=== PATIENT | male | born 1970 | race Caucasian/White ===

== ENCOUNTER 2017-12-13 23:48 | Emergency (ER) | payer OTHER ==
[~2017-12-13] VITALS: Ht 175.3 cm; Wt 78.9 kg
[2017-12-14] MEDS ORDERED: PERCOCET 5/31 TABLET PO (02:54)
[2017-12-14 04:00] VITALS: BP 110/66
== END 2017-12-14 04:00 | disposition home or self-care (01) ==
LOC: EME 23:48
DX: R10.32 Left lower quadrant pain (principal); R22.2 Localized swelling, mass and lump, trunk; X50.9XXA Other and unspecified overexertion or strenuous movements or postures, initial encounter; Y93.66 Activity, soccer
CPT/HCPCS: 76882; 99281; 99283